=== PATIENT | female | born 1970 | race Two or more races ===

== ENCOUNTER 2021-02-28 17:41 | Inpatient (IN) | payer MEDICAID, OTHER ==
[~2021-02-28] VITALS: Ht 167.6 cm; Wt 72.4 kg
[2021-02-28 19:06] LABS: Basophils # (auto) 0.1 10 ^3/uL (0-0.2); Eosinophils # (auto) 0.4 10 ^3/uL (0-0.8); Eosinophils % (auto) 4.6 % (0.0-7.0); Hematocrit 33.3 % (36.0-46.0); Hemoglobin 10.9 g/dL (12.2-16.2); Lymphocytes # (auto) 1.1 10 ^3/uL (0.4-5.4); Lymphocytes % (auto) 11.3 % (10.0-50.0); Mean Corpuscular Hemoglobin 25.9 pg (28.0-32.0); Mean Corpuscular Hgb Conc. 32.7 g/dL (32.0-36.0); Mean Corpuscular Volume 79.1 fL (80.0-100.0); Monocytes # (auto) 1.3 10 ^3/uL (0-1.3); Monocytes % (auto) 13.1 % (0.0-12.0); Neutrophils # (auto) 6.7 10 ^3/uL (1.6-8.6); Nucleated Red Blood Cells % 0.1 %; Platelet Count (auto) 534 10^3/uL (140-450); Red Blood Cells 4.21 10^6/uL (4.0-5.20); Red Cell Distribution Width 16.4 % (11.8-14.3); White Blood Cell 9.5 10^3/uL (4.4-10.8)
[2021-02-28 19:23] LABS: Albumin 2.4 g/dL (3.4-5.0); BUN/Creatinine Ratio 15.6; Potassium 3.8 mmol/L (3.5-5.1)
[2021-02-28 19:28] LABS: Bilirubin, Total 0.3 mg/dL (0.2-1.0); Total Protein 7.7 g/dL (6.4-8.2)
[2021-02-28] MEDS ORDERED: IOHEXOL 350 MG/ML 100ML IJ ONE (22:43)
[2021-03-01] VITALS (12 sets, daily range): BP systolic 107–129; BP diastolic 62–82
[2021-03-01] MEDS ORDERED: ACETAMINOPHEN 325 MG TAB PO ONE (00:45)
[2021-03-01] MEDS ORDERED: HYDROcodone-ACET 5/325MG TAB PO ONE (00:45)
[2021-03-01] MEDS ORDERED: HEPARIN SODIUM (PORCINE) 5000 UNITS/ML 1ML VIAL IV ONE (01:30)
[2021-03-01] MEDS ORDERED: CLOPIDOGREL BISULFATE 75 MG TAB PO ONE (01:30)
[2021-03-01] MEDS ORDERED: ASPirin 81 mg TAB PO ONE (01:30)
[2021-03-01] MEDS ORDERED: HEPARIN DRIP/D5W 100UNITS/ML 250 ML IV SCH ×2 (01:30→03:15)
[2021-03-01 02:11] LABS: Basophils # (auto) 0.1 10 ^3/uL (0-0.2); Lymphocytes # (auto) 1.8 10 ^3/uL (0.4-5.4); White Blood Cell 10.8 10^3/uL (4.4-10.8)
[2021-03-01 02:13] LABS: Basophils % (auto) 1.1 % (0.0-2.0); Eosinophils # (auto) 0.6 10 ^3/uL (0-0.8); Eosinophils % (auto) 5.6 % (0.0-7.0); Hematocrit 32.1 % (36.0-46.0); Hemoglobin 10.5 g/dL (12.2-16.2); Lymphocytes % (auto) 17.2 % (10.0-50.0); Mean Corpuscular Hemoglobin 25.7 pg (28.0-32.0); Mean Corpuscular Hgb Conc. 32.8 g/dL (32.0-36.0); Mean Corpuscular Volume 78.3 fL (80.0-100.0); Monocytes # (auto) 1.6 10 ^3/uL (0-1.3); Monocytes % (auto) 14.6 % (0.0-12.0); Neutrophils # (auto) 6.6 10 ^3/uL (1.6-8.6); Neutrophils % (auto) 61.5 % (37.0-80.0); Platelet Count (auto) 500 10^3/uL (140-450); Red Cell Distribution Width 16.3 % (11.8-14.3)
[2021-03-01 02:39] LABS: INR 1.18 (0.9-1.15); Partial Thromboplastin Time 34.3 sec (23.0-31.2)
[2021-03-01] MEDS ORDERED: ONDANSETRON HCL 4 MG/2 ML VIAL IV PRN (02:45)
[2021-03-01] MEDS ORDERED: MORPHINE SULF INJ 2 MG/ML SYRINGE 1ML IV PRN (02:45)
[2021-03-01] MEDS ORDERED: ALBUTEROL SULF 2.5 MG/0.5ML(0.5%) NEB SOLN NEB PRN (02:45)
[2021-03-01] MEDS ORDERED: NITROGLYCERIN 0.4 MG SL TAB SL PRN (02:45)
[2021-03-01] MEDS ORDERED: TEMAZEPAM 15 MG CAP PO PRN (02:45)
[2021-03-01] MEDS ORDERED: ACETAMINOPHEN 325 MG TAB PO PRN (02:45)
[2021-03-01] MEDS ORDERED: ACE3T PO (05:24)
[2021-03-01] MEDS ORDERED: BENZ100C97 PO (05:25)
[2021-03-01] MEDS: SODIUM CHLORIDE 0.9% 1,000 ML IV SCH ×2 (05:35→22:19)
[2021-03-01] MEDS: cefTRIAXone 1GM/50ML D5W 50 ML IV SCH (05:35)
[2021-03-01] MEDS: AZITHROMYCIN 500MG/ 250ML 250 ML IV SCH (06:47)
[2021-03-01 09:43] LABS: INR 1.15 (0.9-1.15)
[2021-03-01] MEDS ORDERED: LIDOCAINE 2%HCL (LOCAL ANESTH.) INJ 20ML MDV ONE (09:48)
[2021-03-01] MEDS ORDERED: IODIXANOL 320MG/ML 100ML BTL IV ONE (09:48)
[2021-03-01] MEDS ORDERED: fentaNYL CITRATE 100 MCG/2 ML VL ONE (10:36)
[2021-03-01] MEDS ORDERED: VERAPAMIL 2.5MG/ML INJ 2ML VIAL IV ONE (10:36)
[2021-03-01] MEDS ORDERED: ANGIOMAX 250 MG VIAL IV ONE (10:36)
[2021-03-01] MEDS ORDERED: MIDAZOLAM HCL 1MG/1ML-2 ML VIAL ONE (10:37)
[2021-03-01] MEDS ORDERED: SODIUM CHL 0.9% 0 ML ONE (10:37)
[2021-03-01] MEDS: FAMOTIDINE 20 MG TAB PO SCH ×2 (12:50→22:19)
[2021-03-01] MEDS: ASPirin 81 mg TAB PO SCH (12:50)
[2021-03-01] MEDS: HYDROcodone-ACET 5/325MG TAB PO PRN (17:34)
[2021-03-01] MEDS ORDERED: ATORVASTATIN 20 MG TAB PO SCH (22:00)
[2021-03-02] VITALS (7 sets, daily range): BP systolic 111–131; BP diastolic 73–84
[2021-03-02] MEDS: SODIUM CHLORIDE 0.9% 1,000 ML IV SCH ×2 (05:50→18:45)
[2021-03-02 07:25] LABS: Basophils # (auto) 0.1 10 ^3/uL (0-0.2); Eosinophils # (auto) 0.7 10 ^3/uL (0-0.8); Eosinophils % (auto) 7.6 % (0.0-7.0); Monocytes # (auto) 1.2 10 ^3/uL (0-1.3)
[2021-03-02 07:27] LABS: Basophils % (auto) 0.9 % (0.0-2.0); Hematocrit 30.9 % (36.0-46.0); Hemoglobin 10.2 g/dL (12.2-16.2); Lymphocytes # (auto) 1.3 10 ^3/uL (0.4-5.4); Lymphocytes % (auto) 13.2 % (10.0-50.0); Mean Corpuscular Hemoglobin 25.6 pg (28.0-32.0); Mean Corpuscular Hgb Conc. 32.9 g/dL (32.0-36.0); Mean Corpuscular Volume 77.6 fL (80.0-100.0); Monocytes % (auto) 12.5 % (0.0-12.0); Neutrophils # (auto) 6.2 10 ^3/uL (1.6-8.6); Neutrophils % (auto) 65.8 % (37.0-80.0); Platelet Count (auto) 481 10^3/uL (140-450); Red Blood Cells 3.99 10^6/uL (4.0-5.20); Red Cell Distribution Width 16.4 % (11.8-14.3); White Blood Cell 9.5 10^3/uL (4.4-10.8)
[2021-03-02 07:42] LABS: Potassium 3.5 mmol/L (3.5-5.1)
[2021-03-02 07:51] LABS: Albumin 2.1 g/dL (3.4-5.0); BUN/Creatinine Ratio 14.8; Bilirubin, Total 0.3 mg/dL (0.2-1.0); Calcium 8.8 mg/dL (8.5-10.1); Total Protein 6.9 g/dL (6.4-8.2)
[2021-03-02] MEDS: cefTRIAXone 1GM/50ML D5W 50 ML IV SCH (09:23)
[2021-03-02] MEDS: ASPirin 81 mg TAB PO SCH (09:24)
[2021-03-02] MEDS: FAMOTIDINE 20 MG TAB PO SCH ×2 (09:24→21:10)
[2021-03-02] MEDS: AZITHROMYCIN 500MG/ 250ML 250 ML IV SCH (10:17)
[2021-03-02] MEDS: HYDROcodone-ACET 5/325MG TAB PO PRN (19:35)
[2021-03-03 05:00] VITALS: BP 118/75
[2021-03-03 08:00] VITALS: BP 115/70
[2021-03-03] MEDS: SODIUM CHLORIDE 0.9% 1,000 ML IV SCH (08:05)
[2021-03-03 08:45] VITALS: BP 115/70
[2021-03-03] MEDS: FAMOTIDINE 20 MG TAB PO SCH (10:03)
[2021-03-03] MEDS: ASPirin 81 mg TAB PO SCH (10:03)
[2021-03-03] MEDS: cefTRIAXone 1GM/50ML D5W 50 ML IV SCH (10:04)
[2021-03-03 13:00] VITALS: BP 113/75
[2021-03-03 17:00] VITALS: BP 120/81
== END 2021-03-03 18:00 | disposition home or self-care (01) | DRG 192 ==
LOC: ER 17:41 → TELE 03-01 02:37 → TELE-EAST 03-01 04:29
PROVIDERS: ADMIT Nurse Practitioner; ATTEND Internal Medicine
PROC: B2111ZZ Fluoroscopy of Multiple Coronary Arteries using Low Osmolar Contrast (ICD-10-PCS; principal; 2021-03-01)
PROC: 4A023N7 Measurement of Cardiac Sampling and Pressure, Left Heart, Percutaneous Approach (ICD-10-PCS; 2021-03-01)
PROC: B2151ZZ Fluoroscopy of Left Heart using Low Osmolar Contrast (ICD-10-PCS; 2021-03-01)
DX: R07.9 Chest pain, unspecified (principal); J96.00 Acute respiratory failure, unspecified whether with hypoxia or hypercapnia; J18.9 Pneumonia, unspecified organism; J90 Pleural effusion, not elsewhere classified; E44.0 Moderate protein-calorie malnutrition; C79.9 Secondary malignant neoplasm of unspecified site; C34.90 Malignant neoplasm of unspecified part of unspecified bronchus or lung; C73 Malignant neoplasm of thyroid gland; J98.11 Atelectasis; Z20.822 Contact with and (suspected) exposure to COVID-19; Z85.118 Personal history of other malignant neoplasm of bronchus and lung; Z85.850 Personal history of malignant neoplasm of thyroid; Z79.899 Other long term (current) drug therapy; Z79.891 Long term (current) use of opiate analgesic; Z79.01 Long term (current) use of anticoagulants
CPT/HCPCS: 36415; 36600; 71045; 71275; 80053; 82805; 83880; 84484; 84702; 85025; 85610; 85730; 87081; 87426; 93005; 93306; 93458; 96365; 96368; 99152; G0378; J0696; J2250; Q9967

== ENCOUNTER 2021-03-17 09:56 | Inpatient (IN) | payer MEDICAID ==
[~2021-03-17] VITALS: Ht 167.6 cm; Wt 67.0 kg
[~2021-03-17 09:56] MED LIST: ACE3T PO; BENZ100C97 PO
[2021-03-17 10:30] LABS: Basophils # (auto) 0.1 10 ^3/uL (0-0.2); Basophils % (auto) 0.7 % (0.0-2.0); Hemoglobin 9.4 g/dL (12.2-16.2); Lymphocytes # (auto) 1.8 10 ^3/uL (0.4-5.4); Neutrophils # (auto) 6.2 10 ^3/uL (1.6-8.6); Nucleated Red Blood Cells % 0.1 %; Red Cell Distribution Width 17.1 % (11.8-14.3)
[2021-03-17 10:32] LABS: Eosinophils # (auto) 0.5 10 ^3/uL (0-0.8); Eosinophils % (auto) 4.6 % (0.0-7.0); Hematocrit 27.7 % (36.0-46.0); Lymphocytes % (auto) 17.8 % (10.0-50.0); Mean Corpuscular Hemoglobin 25.8 pg (28.0-32.0); Mean Corpuscular Hgb Conc. 33.7 g/dL (32.0-36.0); Mean Corpuscular Volume 76.5 fL (80.0-100.0); Monocytes # (auto) 1.5 10 ^3/uL (0-1.3); Monocytes % (auto) 15.4 % (0.0-12.0); Neutrophils % (auto) 61.5 % (37.0-80.0); Platelet Count (auto) 552 10^3/uL (140-450); Red Blood Cells 3.62 10^6/uL (4.0-5.20)
[2021-03-17 10:50] LABS: Blood Urea Nitrogen 6 mg/dL (7-18); Calcium 8.5 mg/dL (8.5-10.1); Chloride 87 mmol/L (98-107); Potassium 3.8 mmol/L (3.5-5.1); Sodium 121 mmol/L (136-145)
[2021-03-17 10:58] LABS: Alanine Aminotransferase 70 U/L (13-56); Albumin 2.1 g/dL (3.4-5.0); Alkaline Phosphatase 188 U/L (45-117); Anion Gap 11 (5-15); Aspartate Aminotransferase 51 U/L (15-37); BUN/Creatinine Ratio 21.4; Bilirubin, Total 0.9 mg/dL (0.2-1.0); Carbon Dioxide 23 mmol/L (21-32); GFR African American 329 mL/min; GFR Non-African American 272 mL/min; Glucose 117 mg/dL (74-106); Magnesium 2.1 mg/dL (1.6-2.6); Total Protein 6.6 g/dL (6.4-8.2)
[2021-03-17 11:08] LABS: Urine Amorphous Crystal FEW /hpf (None Seen); Urine Bacteria NONE SEEN /hpf (None Seen); Urine Blood Negative /uL (Negative); Urine Specific Gravity 1.005 (1.001-1.035); Urine WBC 2 /hpf (0 - 5)
[2021-03-17] MEDS ORDERED: HYDROcodone-ACET 5/325MG TAB PO PRN (15:15)
[2021-03-17] MEDS ORDERED: MORPHINE SULF INJ 2 MG/ML SYRINGE 1ML IV PRN ×2 (15:15)
[2021-03-17] MEDS ORDERED: NITROGLYCERIN 0.4 MG SL TAB SL PRN (15:15)
[2021-03-17] MEDS ORDERED: ONDANSETRON HCL 4 MG/2 ML VIAL IV PRN (15:15)
[2021-03-17] MEDS ORDERED: ACETAMINOPHEN 500 MG TAB PO PRN (15:15)
[2021-03-17] MEDS ORDERED: IOHEXOL 300 MG/ML 100ML BOTTLE IJ ONE (15:35)
[2021-03-17 22:00] VITALS: BP 114/68
[2021-03-18 04:37] VITALS: BP 97/56
[2021-03-18 05:39] LABS: Basophils # (auto) 0.1 10 ^3/uL (0-0.2); Basophils % (auto) 0.8 % (0.0-2.0); Eosinophils # (auto) 0.4 10 ^3/uL (0-0.8); Eosinophils % (auto) 5.3 % (0.0-7.0); Hematocrit 27.5 % (36.0-46.0); Hemoglobin 9.2 g/dL (12.2-16.2); Lymphocytes # (auto) 1.3 10 ^3/uL (0.4-5.4); Lymphocytes % (auto) 15.9 % (10.0-50.0); Mean Corpuscular Hemoglobin 26.2 pg (28.0-32.0); Mean Corpuscular Hgb Conc. 33.7 g/dL (32.0-36.0); Mean Corpuscular Volume 77.9 fL (80.0-100.0); Monocytes # (auto) 1.4 10 ^3/uL (0-1.3); Neutrophils # (auto) 4.9 10 ^3/uL (1.6-8.6); Nucleated Red Blood Cells % 0.1 %; Platelet Count (auto) 445 10^3/uL (140-450); Red Blood Cells 3.53 10^6/uL (4.0-5.20); Red Cell Distribution Width 17.3 % (11.8-14.3); White Blood Cell 8.1 10^3/uL (4.4-10.8)
[2021-03-18 05:53] LABS: Albumin 1.8 g/dL (3.4-5.0); Calcium 8.1 mg/dL (8.5-10.1); Potassium 3.5 mmol/L (3.5-5.1)
[2021-03-18 05:57] LABS: Bilirubin, Total 0.6 mg/dL (0.2-1.0); Total Protein 5.7 g/dL (6.4-8.2)
[2021-03-18 09:00] VITALS: BP 104/63
[2021-03-18] MEDS: ENOXAPARIN SOD 40 MG/0.4 ML SYRINGE SC SCH (10:05)
[2021-03-18] MEDS: FAMOTIDINE 20 MG TAB PO SCH (10:05)
[2021-03-18 13:00] VITALS: BP 105/58
[2021-03-18 16:55] VITALS: BP 101/58
[2021-03-18] MEDS ORDERED: LORazepam 0.5 MG TAB PO PRN (18:45)
[2021-03-19 05:00] VITALS: BP 109/55
[2021-03-19 05:36] LABS: BUN/Creatinine Ratio 33.3; Calcium 8.5 mg/dL (8.5-10.1); Potassium 3.4 mmol/L (3.5-5.1)
[2021-03-19] MEDS ORDERED: FUROSEMIDE 20 MG/2 ML VIAL IV ONE (08:00)
[2021-03-19] MEDS ORDERED: ALBUMIN 25% 100 ML IV ONE (08:00)
[2021-03-19 08:52] VITALS: BP 94/55
[2021-03-19] MEDS: ENOXAPARIN SOD 40 MG/0.4 ML SYRINGE SC SCH (09:33)
[2021-03-19] MEDS: FAMOTIDINE 20 MG TAB PO SCH (09:33)
[2021-03-19 12:35] VITALS: BP 93/69
== END 2021-03-19 13:30 | disposition home or self-care (01) | DRG 136 ==
LOC: ER 09:56 → TELE 15:12 → TELE-CENTR 22:10
PROVIDERS: ADMIT Nurse Practitioner Acute Care; ATTEND Internal Medicine
PROC: 0W9B3ZZ Drainage of Left Pleural Cavity, Percutaneous Approach (ICD-10-PCS; principal; 2021-03-17)
DX: C78.00 Secondary malignant neoplasm of unspecified lung (principal); J96.21 Acute and chronic respiratory failure with hypoxia; J91.0 Malignant pleural effusion; J18.9 Pneumonia, unspecified organism; E44.0 Moderate protein-calorie malnutrition; C73 Malignant neoplasm of thyroid gland; D63.8 Anemia in other chronic diseases classified elsewhere; E87.1 Hypo-osmolality and hyponatremia; R74.8 Abnormal levels of other serum enzymes; D50.9 Iron deficiency anemia, unspecified; Z20.822 Contact with and (suspected) exposure to COVID-19; Z85.118 Personal history of other malignant neoplasm of bronchus and lung; Z85.850 Personal history of malignant neoplasm of thyroid; Z68.23 Body mass index [BMI] 23.0-23.9, adult
CPT/HCPCS: 36415; 71045; 71275; 76604; 76942; 80048; 80053; 81001; 83615; 83735; 83986; 84443; 84484; 85025; 85379; 85610; 85730; 87070; 87081; 87205; 87426; 89051; 93005; 93970; 99291; G0378; P9047

== ENCOUNTER 2021-03-26 08:17 | Inpatient (IN) | payer MEDICAID ==
[~2021-03-26] VITALS: Ht 167.6 cm; Wt 65.2 kg
[2021-03-26 08:48] LABS: Basophils # (auto) 0.4 10 ^3/uL (0-0.2); Eosinophils # (auto) 0.5 10 ^3/uL (0-0.8); Lymphocytes # (auto) 1.8 10 ^3/uL (0.4-5.4); Mean Corpuscular Hgb Conc. 32.6 g/dL (32.0-36.0)
[2021-03-26 08:50] LABS: Basophils % (auto) 2.9 % (0.0-2.0); Eosinophils % (auto) 3.7 % (0.0-7.0); Hematocrit 29.2 % (36.0-46.0); Hemoglobin 9.5 g/dL (12.2-16.2); Lymphocytes % (auto) 13.6 % (10.0-50.0); Mean Corpuscular Hemoglobin 25.5 pg (28.0-32.0); Mean Corpuscular Volume 78.2 fL (80.0-100.0); Monocytes # (auto) 1.8 10 ^3/uL (0-1.3); Monocytes % (auto) 13.7 % (0.0-12.0); Neutrophils # (auto) 8.5 10 ^3/uL (1.6-8.6); Neutrophils % (auto) 66.1 % (37.0-80.0); Red Blood Cells 3.73 10^6/uL (4.0-5.20); Red Cell Distribution Width 18.6 % (11.8-14.3); White Blood Cell 12.9 10^3/uL (4.4-10.8)
[2021-03-26] MEDS ORDERED: ONDANSETRON HCL 4 MG/2 ML VIAL IV ONE (09:00)
[2021-03-26] MEDS ORDERED: MORPHINE SULFATE 4 MG/ML SYR/VIAL IV ONE ×2 (09:00→14:00)
[2021-03-26 09:02] LABS: Albumin 2.1 g/dL (3.4-5.0); Anion Gap 11 (5-15); Blood Urea Nitrogen 7 mg/dL (7-18); Calcium 9.2 mg/dL (8.5-10.1); Carbon Dioxide 26 mmol/L (21-32); Chloride 99 mmol/L (98-107); Glucose 116 mg/dL (74-106); Magnesium 2.2 mg/dL (1.6-2.6); Potassium 3.7 mmol/L (3.5-5.1); Sodium 136 mmol/L (136-145)
[2021-03-26 09:08] LABS: Alanine Aminotransferase 41 U/L (13-56); Alkaline Phosphatase 147 U/L (45-117); Aspartate Aminotransferase 26 U/L (15-37); BUN/Creatinine Ratio 31.8; Bilirubin, Total 0.3 mg/dL (0.2-1.0); GFR African American 435 mL/min; GFR Non-African American 359 mL/min; Total Protein 6.6 g/dL (6.4-8.2)
[2021-03-26] MEDS ORDERED: PROMETHAZINE W/CODEINE 5 ML ORAL SYRUP PO ONE (11:45)
[2021-03-26] MEDS ORDERED: MORPHINE SULFATE INJECTION 2 MG/ML SYRG IV PRN ×2 (15:00→19:00)
[2021-03-26] MEDS ORDERED: NITROGLYCERIN 0.4 MG SL TAB SL PRN (15:00)
[2021-03-26 15:09] LABS: Urine Amorphous Crystal FEW /hpf (None Seen); Urine Bacteria FEW /hpf (None Seen); Urine Blood Negative /uL (Negative); Urine Mucus FEW (None Seen); Urine Specific Gravity 1.012 (1.001-1.035); Urine WBC 3 /hpf (0 - 5)
[2021-03-26] MEDS ORDERED: PERCOT PO (18:48)
[2021-03-26] MEDS ORDERED: HYDR-4902 PO (18:48)
[2021-03-26] MEDS: OXYCODONE W/ ACETAMINOPHEN 5/325MG TABLET PO PRN ×2 (19:18→23:23)
[2021-03-26 20:10] VITALS: BP 105/67
[2021-03-26 23:25] VITALS: BP 103/78
[2021-03-26 23:29] VITALS: BP 103/78
[2021-03-27] MEDS: OXYCODONE W/ ACETAMINOPHEN 5/325MG TABLET PO PRN ×4 (03:27→20:48)
[2021-03-27 05:51] VITALS: BP 110/70
[2021-03-27 06:36] LABS: Eosinophils # (auto) 0.5 10 ^3/uL (0-0.8); Monocytes # (auto) 1.7 10 ^3/uL (0-1.3); Monocytes % (auto) 13.9 % (0.0-12.0)
[2021-03-27 06:40] LABS: Basophils # (auto) 0.3 10 ^3/uL (0-0.2); Basophils % (auto) 2.3 % (0.0-2.0); Eosinophils % (auto) 3.8 % (0.0-7.0); Hematocrit 28.9 % (36.0-46.0); Hemoglobin 9.2 g/dL (12.2-16.2); Lymphocytes # (auto) 1.5 10 ^3/uL (0.4-5.4); Lymphocytes % (auto) 12.3 % (10.0-50.0); Mean Corpuscular Hgb Conc. 31.7 g/dL (32.0-36.0); Mean Corpuscular Volume 78.7 fL (80.0-100.0); Neutrophils # (auto) 8.2 10 ^3/uL (1.6-8.6); Neutrophils % (auto) 67.7 % (37.0-80.0); Red Blood Cells 3.67 10^6/uL (4.0-5.20); Red Cell Distribution Width 19.1 % (11.8-14.3); White Blood Cell 12.1 10^3/uL (4.4-10.8)
[2021-03-27 06:55] LABS: Calcium 8.9 mg/dL (8.5-10.1); Potassium 3.9 mmol/L (3.5-5.1)
[2021-03-27 07:03] LABS: BUN/Creatinine Ratio 29.2; Bilirubin, Total 0.4 mg/dL (0.2-1.0); Phosphorus 3.4 mg/dL (2.5-4.90); Total Protein 6.3 g/dL (6.4-8.2); Uric Acid 3.2 mg/dL (2.6-6.0)
[2021-03-27 07:16] LABS: INR 1.12 (0.9-1.15); Partial Thromboplastin Time 27.2 sec (23.0-31.2)
[2021-03-27 07:19] LABS: Thyroid Stimulating Hormone 1.1 uIU/mL (0.358-3.74)
[2021-03-27 09:00] VITALS: BP 119/65
[2021-03-27] MEDS ORDERED: AZITHROMYCIN 500MG/ 250ML 250 ML IV SCH (10:00)
[2021-03-27] MEDS ORDERED: HEPARIN SODIUM (PORCINE) 5000 UNITS/ML 1ML VIAL SC SCH (10:00)
[2021-03-27] MEDS ORDERED: IPRATROPIUM BROM 0.5 MG/2.5ML INH SOL NEB ONE (11:15)
[2021-03-27] MEDS ORDERED: NITROGLYCERIN 0.4 MG SL TAB SL PRN (11:15)
[2021-03-27] MEDS ORDERED: HYDROcodone-ACET 5/325MG TAB PO PRN (11:15)
[2021-03-27] MEDS ORDERED: ACETAMINOPHEN 325 MG TAB PO PRN (11:15)
[2021-03-27] MEDS ORDERED: LORazepam 0.5 MG TAB PO PRN (11:15)
[2021-03-27] MEDS ORDERED: MORPHINE SULFATE 4 MG/ML SYR/VIAL IV PRN (11:15)
[2021-03-27] MEDS ORDERED: ONDANSETRON HCL 4 MG/2 ML VIAL IV PRN (11:15)
[2021-03-27] MEDS ORDERED: ALUM & MAG HYDROX-SIMETH LIQ(MAALOX) 30 ML PO PRN (11:15)
[2021-03-27] MEDS ORDERED: IPRATROPIUM BROM 0.5 MG/2.5ML INH SOL NEB PRN (11:15)
[2021-03-27] MEDS ORDERED: MORPHINE SULFATE INJECTION 2 MG/ML SYRG IV PRN (11:15)
[2021-03-27] MEDS ORDERED: IPRATROPIUM BROM 0.5 MG/2.5ML INH SOL ONE (11:45)
[2021-03-27] MEDS ORDERED: CEFEPIME 1 GM in SODIUM CHL 0.9% 50 ML IV ONE (12:00)
[2021-03-27] MEDS: SODIUM CHLORIDE 0.9% 1,000 ML IV SCH (12:47)
[2021-03-27 13:00] VITALS: BP 109/71
[2021-03-27 15:38] LABS: Urine Bacteria NONE SEEN /hpf (None Seen); Urine Blood Negative /uL (Negative); Urine Specific Gravity 1.006 (1.001-1.035); Urine WBC 4 /hpf (0 - 5)
[2021-03-27 15:50] LABS: Alcohol, Urine < 3.0 mg/dL (0-10); Amphetamine Screen, Urine NEGATIVE (NEGATIVE); Barbiturate Scree,Urine NEGATIVE (NEGATIVE); Benzodiazephine Screen, Urine NEGATIVE (NEGATIVE); Cannabinoid Screen, Urine NEGATIVE (NEGATIVE); Cocaine Screen, Urine NEGATIVE (NEGATIVE); Opiate Scree,Urine NEGATIVE (NEGATIVE); Phencyclidine Screen, Urine NEGATIVE (NEGATIVE)
[2021-03-27 17:00] VITALS: BP 125/82
[2021-03-27] MEDS: MORPHINE SULFATE INJECTION 2 MG/ML SYRG IV PRN (19:41)
[2021-03-27] MEDS: CEFEPIME 1 GM in SODIUM CHL 0.9% 50 ML IV SCH (21:59)
[2021-03-27] MEDS: ATORVASTATIN 20 MG TAB PO SCH (22:01)
[2021-03-27] MEDS: ENOXAPARIN SOD 100 MG/1 ML SYRINGE SC SCH (22:02)
[2021-03-27] MEDS: METOPROLOL TARTRATE 25 MG TAB PO SCH (22:02)
[2021-03-27 22:35] VITALS: BP 122/75
[2021-03-28] VITALS (7 sets, daily range): BP systolic 99–126; BP diastolic 61–77
[2021-03-28] MEDS: MORPHINE SULFATE INJECTION 2 MG/ML SYRG IV PRN ×3 (00:23→19:25)
[2021-03-28] MEDS: SODIUM CHLORIDE 0.9% 1,000 ML IV SCH ×2 (00:35→13:55)
[2021-03-28] MEDS: OXYCODONE W/ ACETAMINOPHEN 5/325MG TABLET PO PRN ×5 (02:37→21:36)
[2021-03-28] MEDS: CEFEPIME 1 GM in SODIUM CHL 0.9% 50 ML IV SCH ×3 (05:30→21:35)
[2021-03-28] MEDS: DOCUSATE SOD 100 MG CAP PO PRN ×2 (05:31→08:51)
[2021-03-28 06:12] LABS: Eosinophils # (auto) 0.4 10 ^3/uL (0-0.8); Hemoglobin 9.2 g/dL (12.2-16.2); Lymphocytes # (auto) 1.6 10 ^3/uL (0.4-5.4); Red Cell Distribution Width 19.2 % (11.8-14.3)
[2021-03-28 06:14] LABS: Basophils # (auto) 0.2 10 ^3/uL (0-0.2); Basophils % (auto) 1.4 % (0.0-2.0); Eosinophils % (auto) 2.8 % (0.0-7.0); Lymphocytes % (auto) 12.1 % (10.0-50.0); Mean Corpuscular Hemoglobin 26.2 pg (28.0-32.0); Mean Corpuscular Volume 79.4 fL (80.0-100.0); Monocytes # (auto) 1.4 10 ^3/uL (0-1.3); Monocytes % (auto) 10.5 % (0.0-12.0); Neutrophils # (auto) 9.8 10 ^3/uL (1.6-8.6); Neutrophils % (auto) 73.2 % (37.0-80.0); Red Blood Cells 3.52 10^6/uL (4.0-5.20); White Blood Cell 13.4 10^3/uL (4.4-10.8)
[2021-03-28 06:30] LABS: Calcium 8.6 mg/dL (8.5-10.1); Magnesium 1.9 mg/dL (1.6-2.6); Potassium 3.9 mmol/L (3.5-5.1)
[2021-03-28 06:37] LABS: BUN/Creatinine Ratio 31.6; Bilirubin, Total 0.4 mg/dL (0.2-1.0); Total Protein 6.3 g/dL (6.4-8.2); Uric Acid 3.1 mg/dL (2.6-6.0)
[2021-03-28 07:12] LABS: INR 1.13 (0.9-1.15); Partial Thromboplastin Time 29.3 sec (23.0-31.2)
[2021-03-28] MEDS: ENOXAPARIN SOD 100 MG/1 ML SYRINGE SC SCH ×2 (08:50→21:37)
[2021-03-28] MEDS: METOPROLOL TARTRATE 25 MG TAB PO SCH ×2 (08:50→21:36)
[2021-03-28] MEDS: ATORVASTATIN 20 MG TAB PO SCH (21:35)
[2021-03-28] MEDS: LORazepam 0.5 MG TAB PO PRN (23:04)
[2021-03-29] MEDS: OXYCODONE W/ ACETAMINOPHEN 5/325MG TABLET PO PRN ×3 (01:34→18:15)
[2021-03-29] MEDS: MORPHINE SULFATE INJECTION 2 MG/ML SYRG IV PRN ×3 (03:12→23:58)
[2021-03-29] MEDS: SODIUM CHLORIDE 0.9% 1,000 ML IV SCH ×2 (03:12→16:35)
[2021-03-29 05:00] VITALS: BP 116/71
[2021-03-29] MEDS: CEFEPIME 1 GM in SODIUM CHL 0.9% 50 ML IV SCH ×3 (06:00→22:31)
[2021-03-29 07:45] LABS: Basophils # (auto) 0.2 10 ^3/uL (0-0.2); Eosinophils # (auto) 0.5 10 ^3/uL (0-0.8); Hemoglobin 9.1 g/dL (12.2-16.2); Lymphocytes # (auto) 1.8 10 ^3/uL (0.4-5.4); Monocytes # (auto) 1.7 10 ^3/uL (0-1.3); Neutrophils # (auto) 11.1 10 ^3/uL (1.6-8.6); Nucleated Red Blood Cells % 0.1 %
[2021-03-29 07:48] LABS: Basophils % (auto) 1.2 % (0.0-2.0); Eosinophils % (auto) 3.1 % (0.0-7.0); Hematocrit 27.8 % (36.0-46.0); Lymphocytes % (auto) 12.1 % (10.0-50.0); Mean Corpuscular Hemoglobin 25.6 pg (28.0-32.0); Mean Corpuscular Hgb Conc. 32.8 g/dL (32.0-36.0); Mean Corpuscular Volume 78.1 fL (80.0-100.0); Neutrophils % (auto) 72.6 % (37.0-80.0); Red Blood Cells 3.56 10^6/uL (4.0-5.20); White Blood Cell 15.3 10^3/uL (4.4-10.8)
[2021-03-29 07:55] LABS: INR 1.1 (0.9-1.15); Partial Thromboplastin Time 29.1 sec (23.0-31.2)
[2021-03-29 08:11] LABS: Potassium 3.8 mmol/L (3.5-5.1)
[2021-03-29 08:18] LABS: Albumin 1.9 g/dL (3.4-5.0); BUN/Creatinine Ratio 30.4; Bilirubin, Total 0.4 mg/dL (0.2-1.0); Calcium 8.9 mg/dL (8.5-10.1); Phosphorus 2.8 mg/dL (2.5-4.90); Total Protein 6.2 g/dL (6.4-8.2)
[2021-03-29 09:00] VITALS: BP 120/78
[2021-03-29] MEDS: METOPROLOL TARTRATE 25 MG TAB PO SCH (10:01)
[2021-03-29] MEDS ORDERED: LORazepam 2MG/ML-1ML VIAL IV ONE (12:30)
[2021-03-29] MEDS: ENOXAPARIN SOD 100 MG/1 ML SYRINGE SC SCH (12:31)
[2021-03-29 13:00] VITALS: BP 121/73
[2021-03-29] MEDS ORDERED: DOCUSATE SOD 100 MG CAP PO ONE (13:00)
[2021-03-29 17:00] VITALS: BP 129/82
[2021-03-29] MEDS: LACTULOSE 20Gm/30ML SOLN PO SCH (18:09)
[2021-03-29] MEDS ORDERED: DexAMETHasone INJECTION 10 MG in D5W 5% 50 ML IV ONE (21:00)
[2021-03-29] MEDS: DOCUSATE SOD 100 MG CAP PO SCH (21:36)
[2021-03-29] MEDS: ENOXAPARIN SOD 60 MG/0.6 ML SYRINGE SC SCH (21:37)
[2021-03-29 22:00] VITALS: BP 118/73
[2021-03-30] MEDS: MORPHINE SULFATE INJECTION 2 MG/ML SYRG IV PRN ×4 (03:51→21:41)
[2021-03-30 05:00] VITALS: BP 115/72
[2021-03-30] MEDS: DexAMETHasone INJECTION 6 MG in D5W 5% 50 ML IV SCH ×4 (05:44→22:14)
[2021-03-30] MEDS: LACTULOSE 20Gm/30ML SOLN PO SCH ×4 (06:00→18:00)
[2021-03-30] MEDS: CEFEPIME 1 GM in SODIUM CHL 0.9% 50 ML IV SCH ×3 (06:00→22:14)
[2021-03-30] MEDS: SODIUM CHLORIDE 0.9% 1,000 ML IV SCH ×2 (06:09→15:20)
[2021-03-30 09:00] VITALS: BP 128/73
[2021-03-30] MEDS: DOCUSATE SOD 100 MG CAP PO SCH ×2 (10:32→21:40)
[2021-03-30] MEDS: ENOXAPARIN SOD 60 MG/0.6 ML SYRINGE SC SCH ×2 (10:33→21:40)
[2021-03-30] MEDS ORDERED: MAGNESIUM CITRATE SOLUTION 300 ML BTL PO ONE (12:00)
[2021-03-30 13:00] VITALS: BP 116/79
[2021-03-30] MEDS ORDERED: FAMO20TA10 PO (14:32)
[2021-03-30] MEDS ORDERED: SENN1TAB PO (14:35)
[2021-03-30] MEDS ORDERED: TURM500C3 PO (14:42)
[2021-03-30] MEDS ORDERED: DOCU-80 PO (14:46)
[2021-03-30 17:00] VITALS: BP 140/84
[2021-03-30 22:00] VITALS: BP 133/81
[2021-03-30] MEDS ORDERED: TEMAZEPAM 15 MG CAP PO PRN (22:00)
[2021-03-30] MEDS: LORazepam 0.5 MG TAB PO PRN (23:06)
[2021-03-30] MEDS: ALBUTEROL SULF 2.5 MG/0.5ML(0.5%) NEB SOLN NEB PRN (23:09)
[2021-03-31] MEDS: MORPHINE SULFATE INJECTION 2 MG/ML SYRG IV PRN ×7 (00:57→22:36)
[2021-03-31 02:11] VITALS: BP 133/81
[2021-03-31 05:10] VITALS: BP 133/85
[2021-03-31] MEDS: LACTULOSE 20Gm/30ML SOLN PO SCH ×4 (05:16→18:19)
[2021-03-31] MEDS: DexAMETHasone INJECTION 6 MG in D5W 5% 50 ML IV SCH ×4 (05:48→21:30)
[2021-03-31] MEDS: CEFEPIME 1 GM in SODIUM CHL 0.9% 50 ML IV SCH ×3 (06:21→18:19)
[2021-03-31 08:30] VITALS: BP 133/88
[2021-03-31] MEDS: ENOXAPARIN SOD 60 MG/0.6 ML SYRINGE SC SCH ×2 (08:47→21:31)
[2021-03-31] MEDS: DOCUSATE SOD 100 MG CAP PO SCH ×2 (08:48→21:30)
[2021-03-31] MEDS: SODIUM CHLORIDE 0.9% 1,000 ML IV SCH ×2 (08:48→21:55)
[2021-03-31] MEDS: ALBUTEROL SULF 2.5 MG/0.5ML(0.5%) NEB SOLN NEB PRN (09:52)
[2021-03-31] MEDS ORDERED: MORPHINE SULF 15mg ER tab PO ONE (11:45)
[2021-03-31 12:30] VITALS: BP 133/88
[2021-03-31 17:00] VITALS: BP 135/81
[2021-03-31] MEDS ORDERED: PANTOPRAZOLE 40 MG TAB PO ONE (17:00)
[2021-03-31] MEDS: MORPHINE SULF 15mg ER tab PO SCH ×2 (21:30→22:24)
[2021-03-31] MEDS ORDERED: BISACODYL 10 MG RECT SUPP PR ONE (22:45)
[2021-04-01] MEDS: MORPHINE SULFATE INJECTION 2 MG/ML SYRG IV PRN ×6 (01:48→20:29)
[2021-04-01 05:10] VITALS: BP 123/81
[2021-04-01] MEDS: LACTULOSE 20Gm/30ML SOLN PO SCH ×5 (06:00→23:36)
[2021-04-01] MEDS: DexAMETHasone INJECTION 6 MG in D5W 5% 50 ML IV SCH ×4 (06:09→21:38)
[2021-04-01] MEDS: CEFEPIME 1 GM in SODIUM CHL 0.9% 50 ML IV SCH ×2 (06:11→15:59)
[2021-04-01] MEDS: PANTOPRAZOLE 40 MG TAB PO SCH (06:26)
[2021-04-01 08:30] VITALS: BP 130/82
[2021-04-01] MEDS: DOCUSATE SOD 100 MG CAP PO SCH ×2 (09:01→21:35)
[2021-04-01] MEDS: ENOXAPARIN SOD 60 MG/0.6 ML SYRINGE SC SCH ×2 (09:02→21:36)
[2021-04-01] MEDS: MORPHINE SULF 15mg ER tab PO SCH ×2 (10:15→21:35)
[2021-04-01] MEDS: SODIUM CHLORIDE 0.9% 1,000 ML IV SCH (11:15)
[2021-04-01 12:30] VITALS: BP 122/67
[2021-04-01 17:00] VITALS: BP 126/82
[2021-04-01] MEDS: LORazepam 0.5 MG TAB PO PRN (18:13)
[2021-04-01] MEDS ORDERED: CEFEPIME 1 GM in SODIUM CHL 0.9% 50 ML IV SCH (23:00)
[2021-04-02 05:00] VITALS: BP 125/83
[2021-04-02] MEDS: LACTULOSE 20Gm/30ML SOLN PO SCH ×2 (06:00→12:00)
[2021-04-02] MEDS: DexAMETHasone INJECTION 6 MG in D5W 5% 50 ML IV SCH ×2 (06:08→11:44)
[2021-04-02] MEDS: MORPHINE SULFATE INJECTION 2 MG/ML SYRG IV PRN ×3 (06:10→13:51)
[2021-04-02] MEDS: CEFEPIME 1 GM in SODIUM CHL 0.9% 50 ML IV SCH ×2 (07:02→15:00)
[2021-04-02] MEDS: PANTOPRAZOLE 40 MG TAB PO SCH (07:02)
[2021-04-02 09:00] VITALS: BP 130/83
[2021-04-02] MEDS: MORPHINE SULF 15mg ER tab PO SCH (09:29)
[2021-04-02] MEDS: ENOXAPARIN SOD 60 MG/0.6 ML SYRINGE SC SCH (09:30)
[2021-04-02] MEDS: DOCUSATE SOD 100 MG CAP PO SCH (09:30)
[2021-04-02 13:00] VITALS: BP 134/83
[2021-04-02 13:36] VITALS: BP 120/78
[2021-04-02] MEDS: SODIUM CHLORIDE 0.9% 1,000 ML IV SCH (13:52)
== END 2021-04-02 15:15 | disposition hospice, home (50) | DRG 343 ==
LOC: ER 08:17 → TELE 14:56 → TELE-EAST 16:47
PROVIDERS: ADMIT Hospitalist; ATTEND Internal Medicine
DX: M48.54XA Collapsed vertebra, not elsewhere classified, thoracic region, initial encounter for fracture (principal); C79.51 Secondary malignant neoplasm of bone; J96.21 Acute and chronic respiratory failure with hypoxia; I21.4 Non-ST elevation (NSTEMI) myocardial infarction; R65.20 Severe sepsis without septic shock; A41.9 Sepsis, unspecified organism; E43 Unspecified severe protein-calorie malnutrition; R64 Cachexia; J91.0 Malignant pleural effusion; J18.1 Lobar pneumonia, unspecified organism; C73 Malignant neoplasm of thyroid gland; C78.7 Secondary malignant neoplasm of liver and intrahepatic bile duct; Z51.5 Encounter for palliative care; M54.5 Low back pain; D64.9 Anemia, unspecified; C53.9 Malignant neoplasm of cervix uteri, unspecified; R04.2 Hemoptysis; R62.7 Adult failure to thrive; J98.11 Atelectasis; G89.29 Other chronic pain; I25.9 Chronic ischemic heart disease, unspecified; Z68.23 Body mass index [BMI] 23.0-23.9, adult; Z85.118 Personal history of other malignant neoplasm of bronchus and lung; Z85.850 Personal history of malignant neoplasm of thyroid; Z92.21 Personal history of antineoplastic chemotherapy; Z20.822 Contact with and (suspected) exposure to COVID-19
CPT/HCPCS: 36415; 36600; 71045; 71250; 72146; 72148; 80053; 80307; 81001; 82306; 82805; 83036; 83615; 83735; 83880; 83930; 84100; 84132; 84443; 84484; 84550; 85025; 85379; 85610; 85730; 87040; 87081; 87086; 87426; 93005; 94640; 96374; 96375; 96376; G0378; J1100; J2405; J7060